=== PATIENT | female | born 2005 | race Caucasian/White ===

== ENCOUNTER 2023-10-14 21:34 | Emergency (ER) | payer MEDICAID, SELFPAY ==
[2023-10-14 21:34] VITALS: BP 114/85; PULSE 102; RESP 16; TEMP 36.1; O2SAT 95; BMI 29.9
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
[2023-10-14 22:45] LABS: Internal QC Validated? YES +Cl - CLEAR BKGD; Pregnancy, Urine Negative Negative
[2023-10-14 22:48] LABS: Absolute Lymphocyte Count 1.82 X10^3/uL (0.83-4.51); Absolute Neutrophil Count 7.1 X10^3/uL (2.0-7.7); Basophil# 0.03 X10^3/uL; Basophil% 0.3 % (0-1); Eosinophil# 0.08 X10^3/uL; Eosinophils% 0.8 % (0-5); Hematocrit 37.4 % (37-47); Hemoglobin 12.1 g/dL (12.0-15.0); Lymphocyte # 1.82 X10^3/ul (0.83-4.51); Mean Corp Hgb Conc 32.4 g/dL (32-36); Mean Corpuscular Volume 83.5 fL (81-99); Mean Platelet Vol. 10.1 fl (6.2-12.0); Monocyte# 0.54 X10^3/uL; Monocyte% 5.6 % (0-10); NRBC Flagged by Analyzer 0 % (0-5); Neutrophil # 7.08 X10^3/uL (2.7-7.7); Platelet Count 318 K/mm3 (150-450); RBC Distribution Width CV 14.2 % (11.6-14.6); RBC Distribution Width SD 42.7 fl (35.1-43.9); Red Blood Count 4.48 M/mm3 (4.2-5.4); White Blood Count 9.6 K/mm3 (4.4-11.0)
[2023-10-14 23:02] LABS: AST(SGOT) 20 U/L (15-37); Alanine Aminotransfer ALT/SGPT 27 U/L (13-56); Albumin, Serum 3.8 g/dL (3.2-5.0); Alkaline Phosphatase 110 U/L (45-117); Anion Gap 7 (5-15); BUN 19 mg/dL (7-18); BUN/Creat Ratio 23.7 RATIO (10-20); Calcium,Total 9.4 mg/dL (8.5-10.1); Chloride 109 mmol/L (98-107); EST Glomerular Filtration Rate 96 mL/min (>60); Est Glom Filt Rate - Afr Amer 117 mL/min (>60); Estimated Creatinine Clearance 92.79 ml/min; Globulin 3.8 g/dL (2.2-4.2); Glucose 102 mg/dL (74-106); Potassium 3.5 mmol/L (3.5-5.1); Protein, Total 7.6 g/dL (6.4-8.2); Sodium Level 139 mmol/L (136-145)
[2023-10-14 23:03] LABS: Amphetamine Urine VISTA NEGATIVE (<1000 ng/mL); Barbiturate Urine VISTA NEGATIVE (< 200 ng/mL); Benzodiazepine Urine VISTA NEGATIVE (< 200 ng/mL); Cocaine Urine VISTA NEGATIVE (< 300 ng/mL); Ecstacy Urine VISTA NEGATIVE (< 500 ng/mL); Methadone Urine VISTA NEGATIVE (< 300 ng/mL); PCP Urine VISTA NEGATIVE (< 25 ng/mL); THC Urine VISTA NEGATIVE (< 50 ng/mL); Vista UDS pH Range 5
--- NOTE | 2023-10-15 00:18 | NURSING ---
CALLED CRISIS AT 0018
[2023-10-15 01:35] VITALS: RESP 16
== END 2023-10-15 01:43 | disposition home or self-care (01) ==
PROVIDERS: Emergency Provider Emergency Medicine; Visit Provider Emergency Medicine
DX: R45.851 Suicidal ideations (principal); F41.9 Anxiety disorder, unspecified; F43.10 Post-traumatic stress disorder, unspecified; W22.8XXA Striking against or struck by other objects, initial encounter; F90.9 Attention-deficit hyperactivity disorder, unspecified type; F17.210 Nicotine dependence, cigarettes, uncomplicated; S80.812A Abrasion, left lower leg, initial encounter; S80.811A Abrasion, right lower leg, initial encounter
CPT/HCPCS: 84703; 80053; 80307; 81025; 82077; 85025; 87811; 99283

== ENCOUNTER 2024-04-28 17:40 | Outpatient (CLI) | payer MEDICAID, SELFPAY ==
[2024-04-28 17:46] VITALS: BP 107/69; PULSE 100; PULSE 96; O2SAT 98
[2024-04-28 17:51] VITALS: PULSE 109; O2SAT 97
[2024-04-28 17:56] VITALS: PULSE 95; O2SAT 97
[2024-04-28 18:01] VITALS: PULSE 96; O2SAT 98
[2024-04-28 18:06] VITALS: PULSE 101; O2SAT 98
--- NOTE | 2024-05-04 10:14 | OB.TRI.NOTE ---
HPI - General General Date of Admission: 04/28/24 Date of Service: 04/28/24 Chief Complaint: chest pain HPI Narrative DARIN STERLING, is a 19 F who presented to the ER with chest pain. She was sent to L&D given cramping for rule out labor before being evaluated for her chest pain. No vb, lof. PFSH PFSH Medical History (Updated 05/04/24 @ 10:[address] Bharti Shrestha, DO) PTSD (post-traumatic stress disorder) Anxiety Depression Chronic post-traumatic stress disorder (PTSD) Home Medications ?Medication ?Instructions ?Recorded ?Last Taken ?Type hydroxyzine pamoate 25 mg capsule 25 mg PO TID PRN anxiety #20 caps 10/15/23 Unknown Rx (Vistaril) Allergy/AdvReac Type Severity Reaction Status Date / Time No Known Allergies Allergy Verified 10/14/23 21:55 Surgical History Delivery by section History of ankle surgery Social History Smoking Status: Former smoker NST FHR Rate Baby A Baseline: 140 Variability:: Moderate Accelerations:: None Decelerations:: None NST Reactive:: Appropriate for gestational age Uterine Activity:: no contractions Assessment & Plan (1) 29 weeks gestation of : (2) Cramping affecting , antepartum: PLAN: No evidence of labor. Ok to go to ER for eval of chest pain. (3) Chest pain:
== END 2024-04-28 18:15 | disposition home or self-care (01) ==
LOC: WPOUT 17:42 → WP 17:43
PROVIDERS: Visit Provider Obstetrics & Gynecology
DX: O99.891 Other specified diseases and conditions complicating pregnancy (principal); R07.9 Chest pain, unspecified; Z87.891 Personal history of nicotine dependence; Z3A.29 29 weeks gestation of pregnancy; O26.893 Other specified pregnancy related conditions, third trimester; R25.2 Cramp and spasm; O99.343 Other mental disorders complicating pregnancy, third trimester; F43.12 Post-traumatic stress disorder, chronic
CPT/HCPCS: 59050; G0378; 99221

== ENCOUNTER 2024-04-28 18:20 | Emergency (ER) | payer MEDICAID, SELFPAY ==
[2024-04-28] VITALS (13 sets, daily range): BP systolic 96–110; BP diastolic 59–72; PULSE 87–102; RESP 15–24; TEMP 36.4–36.9; O2SAT 95–100; BMI 30.6
--- NOTE | 2024-04-28 19:21 | EKG12_ITS ---
Test Reason : DYSRHYTHMIA Blood Pressure : / mmHG Vent. Rate : 089 BPM Atrial Rate : 089 BPM P-R Int : 164 ms QRS Dur : 076 ms QT Int : 358 ms P-R-T Axes : 030 030 -04 degrees QTc Int : 435 ms Normal sinus rhythm Normal ECG Confirmed by Michael Delgado ([id number]), film and video editor VLADIMIR STARKS ([id number]) on 04/29/2024 12:57:01 PM Referred By: SEEMA Confirmed By:Michael Delgado
--- NOTE | 2024-04-28 19:30 | RAD_ITS ---
STUDY: X-RAY CHEST REASON FOR EXAM: Female, 19 years old. chest pain TECHNIQUE: AP portable COMPARISON: None. FINDINGS: The lungs are clear and expanded. There is no demonstrated pleural abnormality. Normal size heart. Normal mediastinum and arabella. Normal visualized pulmonary arteries. Normal visualized aortic arch and descending thoracic aorta. Normal visualized thoracic spine. Normal visualized ribs, clavicles, and shoulders. There is no demonstrated abnormality of the visualized soft tissue structures of the upper abdomen. RAD/Chest 1 View (Portable) IMPRESSION: Normal x-ray examination of the chest. Electronically Signed: Alexis Peters MD at 19:46 EDT ,
[2024-04-28 19:36] LABS: Absolute Lymphocyte Count 1.93 X10^3/uL (0.83-4.51); Absolute Neutrophil Count 8.1 X10^3/uL (2.0-7.7); Basophil# 0.04 X10^3/uL; Basophil% 0.4 % (0-1); Eosinophil# 0.16 X10^3/uL; Eosinophils% 1.5 % (0-5); Hematocrit 31.5 % (37-47); Hemoglobin 9.7 g/dL (12.0-15.0); Lymphocyte # 1.93 X10^3/ul (0.83-4.51); Lymphocyte % 17.6 % (19-41); Mean Corp Hgb Conc 30.8 g/dL (32-36); Mean Corpuscular Hgb 25.7 pg (27.0-32.0); Mean Corpuscular Volume 83.3 fL (81-99); Mean Platelet Vol. 10.6 fl (6.2-12.0); Monocyte# 0.62 X10^3/uL; Monocyte% 5.7 % (0-10); NRBC Flagged by Analyzer 0 % (0-5); Neutrophil # 8.11 X10^3/uL (2.7-7.7); Neutrophil % 73.8 % (47-70); Platelet Count 231 K/mm3 (150-450); RBC Distribution Width SD 45.2 fl (35.1-43.9); Red Blood Count 3.78 M/mm3 (4.2-5.4)
[2024-04-28 19:54] LABS: Anion Gap 8 (5-15); BUN 13 mg/dL (7-18); Calcium,Total 9.2 mg/dL (8.5-10.1); Chloride 107 mmol/L (98-107); Creatinine, Serum 0.68 mg/dL (0.55-1.02); EST Glomerular Filtration Rate 115 mL/min (>60); Est Glom Filt Rate - Afr Amer 140 mL/min (>60); Estimated Creatinine Clearance 119.98 ml/min; Glucose 74 mg/dL (74-106); Potassium 3.8 mmol/L (3.5-5.1); Sodium Level 137 mmol/L (136-145); Troponin-I HS (w/2H Reflex) < 3 pg/mL (3.0-54.0)
[2024-04-28 19:56] LABS: BNP,B-Type NATRIURETIC PEPTIDE 4.4 pg/mL (0-100)
[2024-04-28 20:05] LABS: D-Dimer Quantitative (DVT/PE) 1.97 FEU/ug/m (0.27-0.49)
--- NOTE | 2024-04-28 20:07 | CT_ITS ---
STUDY: CTA CHEST REASON FOR EXAM: Female, 19 years old. chest pain elevated d-dimer r/o PE RADIATION DOSAGE (If Supplied By Facility): CTDIvol = ( 11.34 ) mGy, DLP = ( 427.63 ) mGycm TECHNIQUE: The examination was performed with the intravenous administration of IV 100mL Isovue-370. Post-processing of the angiographic images was performed, with multiplanar reformation and 3D reconstruction. Individualized dose optimization techniques were used for this CT. COMPARISON: None. FINDINGS: Normal enhancement of the main pulmonary artery and right and left pulmonary arteries. Normal enhancement of the bilateral peripheral pulmonary arteries. There is no demonstrated pulmonary embolism. Normal thoracic aorta and visualized great vessels. There is no demonstrated aortic dissection. Normal heart and pericardium. Normal mediastinum. Normal hilar regions. Normal visualized trachea and bronchi. The lungs are well expanded. Mild generalized interstitial thickening and groundglass opacity possibly representing pulmonary interstitial edema although more likely due to respiratory motion artifact. Normal pleura. Normal chest wall structures. Normal osseous structures. Normal visualized upper abdomen. CT/CTA Chest W/WO Contrast IMPRESSION: No definitive evidence for acute cardiopulmonary pathology. Cannot definitively exclude mild pulmonary interstitial edema.. No evidence for pulmonary embolus Electronically Signed: Alexis Peters MD at 20:45 EDT ,
[2024-04-28] MEDS: 0.9% Normal Saline (1000mL) 1,000 ML 999 ML IV (20:11)
--- NOTE | 2024-04-28 20:36 | ED.VIS.CHEST ---
HPI History of Present Illness Chief Complaint: Chest Pain [facility] Medical History (Updated 04/28/24 @ 18:38 by Simran Johnson) PTSD (post-traumatic stress disorder) Anxiety Depression Chronic post-traumatic stress disorder (PTSD) Home Medications ?Medication ?Instructions ?Recorded ?Last Taken ?Type hydroxyzine pamoate 25 mg capsule 25 mg PO TID PRN anxiety #20 caps 10/15/23 Unknown Rx (Vistaril) Allergy/AdvReac Type Severity Reaction Status Date / Time No Known Allergies Allergy Verified 10/14/23 21:55 Surgical History Delivery by section History of ankle surgery Social History Smoking Status: Former smoker EXAM Physical Exam Const Vital Signs: 04/28/24 18:21 04/28/24 18:38 04/28/24 19:25 Temperature 97.6 F L Temperature Source Temporal Pulse Rate 92 Respiratory Rate 15 Respiratory Effort Normal Non-Labored Blood Pressure 110/68 Blood Pressure Mean 82 Pulse Ox 95 Oxygen Delivery Method Room Air Room Air 04/28/24 20:00 04/28/24 20:03 04/28/24 20:10 Temperature Temperature Source Pulse Rate 87 87 Respiratory Rate 21 H 17 Respiratory Effort Blood Pressure 98/72 98/72 Blood Pressure Mean 81 80 Pulse Ox 97 100 Oxygen Delivery Method Room Air Room Air 04/28/24 20:15 04/28/24 20:31 04/28/24 20:45 Temperature Temperature Source Pulse Rate 102 H 94 93 Respiratory Rate 19 H 16 24 H Respiratory Effort Blood Pressure Blood Pressure Mean Pulse Ox 100 100 99 Oxygen Delivery Method 04/28/24 21:00 04/28/24 21:15 04/28/24 21:30 Temperature Temperature Source Pulse Rate 95 90 Respiratory Rate 21 H 22 H Respiratory Effort Blood Pressure 103/71 Blood Pressure Mean 80 Pulse Ox 100 98 Oxygen Delivery Method 04/28/24 21:45 04/28/24 22:00 Temperature Temperature Source Pulse Rate 95 Respiratory Rate 18 Respiratory Effort Blood Pressure 96/59 L Blood Pressure Mean 71 Pulse Ox 97 Oxygen Delivery Method MDM MDM MDM Narrative Medical decision making narrative: HISTORY OF PRESENT ILLNESS: 19-year-old female presents with chest pain. Chest pain started approximate 10:30 AM. Notes it is midsternal it is sharp and is not exertional. She does note it is worse by cough. Is not worse by food. Denies syncope. The patient denies recent surgery in the last 4 weeks or immobilization in the last 3 days, denies previous diagnosis of DVT or PE, hemoptysis, unilateral leg swelling or malignancy with treatment the last 6 months or palliative. No estrogen use noted. Denies abdominal pain, passing any tissue, leakage of fluid, vaginal bleeding or contractions at this time. Patient denies sudden onset of pain, no tearing sensation, no migratory symptoms, no new numbness, weakness or loss of sensation. Patient denies family history or personal history of Connective tissue disorders (Marfan's Syndrome, Cal Danlos etc). REVIEW OF SYSTEMS: Pertinent positives: Chest pain, cough Pertinent negatives: Leg swelling, hemoptysis, PHYSICAL EXAM: Nursing triage notes reviewed, Vital signs reviewed Constitutional: please see mdm HENT: MMM Eyes: Pupils equal round and reactive to light, Extraocular muscles intact Neck: No stridor, no JVD, full neck ROM Lungs: Clear to auscultation, No wheezing or rales. No increased work of breathing, no conversational dyspnea, no accessory muscle use, no nasal flaring. No respiratory distress noted Heart: Regular rate and rhythm, No murmurs, No rubs and No gallops, 2+ distal pulses (radial, femoral, posterior tibial) in all extremities Abdomen: Soft, there is no tenderness, rigidity, rebound or guarding, no obvious peritoneal signs, no palpable pulsatile abdominal masses, no auscultated abdominal bruit : No CVAT Extremities: No edema Neuro: No focal neurological deficits, cranial nerves II through XII intact, 5/5 strength in all extremities. Intact sensation to light touch in all extremities, 2+ reflexes bilateral patella tendons. Normal gait. No ataxia. Skin: No rash or lesions noted MEDICAL DECISION MAKING: Chief Complaint: Chest pain External records reviewed: No recent advanced imaging of the chest. No recent echocardiograms noted in the chart Factors affecting care: Social determinants of health: History obtained from others: none Consults: none [facility] Narrative: Patient was initially hemodynamically stable, afebrile and nontoxic-appearing. Exam without stigmata of VTE. No focal cardiopulmonary abnormalities noted. I considered the following differential diagnosis: ACS, arrhythmia, anemia, electrolyte disturbance, pneumonia, asthma exacerbation, PE ALL IMAGES (IF OBTAINED) HAVE BEEN PERSONALLY REVIEWED AND INTERPRETED BY MYSELF. EKG with normal sinus rhythm, normal axis, normal intervals, no STEMI, no signs of right heart D-dimer was elevated this was concerning for VTE. Patient was consented for CT scan. Risk and benefits of radiation exposure to the unborn fetus were discussed. Patient agreed with benefits and agreed to go to the study. She is alert and orient x 3 and had capacity to make her medical symptoms and chose to go to a CT scan at this time. High-sensitivity troponin is negative, no evidence of myocardial ischemia x 2 BNP within normal limits suggestive of no heart failure CBC with no leukocytosis, noted anemia, no thrombocytopenia BMP without evidence of significant electrolyte abnormalities, no anion gap, no acute kidney injury. I have personally reviewed the patient's chest x-ray. Chest x-ray is unremarkable for pulmonary edema, pneumothorax, pneumonia or focal cardiopulmonary abnormality. CT scan of the chest shows no evidence of PE, while the radiologist commented on interstitial edema patient has no hypoxia, no rales, BNP negative, no arrhythmia. I do not think the patient is having acute CHF exacerbation The synthesis of the patient's history, physical exam, labs images suggest no acute life-limiting etiology specifically no evidence of ACS, heart failure, PE, significant anemia (noted worsening hemoglobin was likely secondary to changes in rather than acute blood loss anemia or GI bleed, do not suspect is causing her chest pain), electrolyte disturbances or arrhythmia. The patient and/or family, caregivers express understanding. The patient and/or family, caregivers agrees with the plan. Shared decision making: I will have a discussion with the patient and or visitors regarding risk/benefits of further testing or admission. They will be made aware of of the risk/benefits inherent in this decision they will be given the opportunity to voice understanding. Total critical care time today provided was at least 0 minutes. This excludes separately billable procedures. Critical care time (if documented) is secondary to the patient having high probability of clinically significant/life threatening deterioration in the patient's condition which required my urgent intervention. Impression: 1. Chest pain 2. Trimester 3. Anemia Dispo: Discharge home This note was generated with 2Check[employer] dictation software. It may contain incorrect words, spelling, and punctuation that were not noted in review of the chart prior to signing. Lab Data Labs: Laboratory Results - last 24 hr 07/08/24 07/08/24 19:10 21:02 WBC 11.0 RBC 3.78 L Hgb 9.7 L Hct 31.5 L MCV 83.3 MCH 25.7 L MCHC 30.8 L RDW Std Deviation 45.2 H RDW Coeff of Maddison 15.0 H Plt Count 231 MPV 10.6 Immature Gran % (Auto) 1.000 H Neut % (Auto) 73.8 H Lymph % (Auto) 17.6 L Miller % (Auto) 5.7 Eos % (Auto) 1.5 Baso % (Auto) 0.4 Absolute Neuts (auto) 8.1 H Absolute Lymphs (auto) 1.93 Nucleated RBC % 0 D-Dimer Quant (PE/DVT) 1.97 H* Sodium 137 Potassium 3.8 Chloride 107 Carbon Dioxide 22.0 Anion Gap 8 BUN 13 Creatinine 0.68 Estim Creat Clear Calc 119.98 Est GFR (MDRD) Af Amer 140 Est GFR (MDRD) Non-Af 115 BUN/Creatinine Ratio 19.0 Glucose 74 Calcium 9.2 Troponin I High Sens < 3 L < 3 L B-Natriuretic Peptide 4.4 Radiography Diagnostic Testing: Clinical Impression(s) from Imaging Studies Chest X-Ray 04/28/24 19:30 IMPRESSION: Normal x-ray examination of the chest. Electronically Signed: Alexis Peters MD at 19:46 EDT , Chest CTA 04/28/24 20:07 IMPRESSION: No definitive evidence for acute cardiopulmonary pathology. Cannot definitively exclude mild pulmonary interstitial edema.. No evidence for pulmonary embolus Electronically Signed: Alexis Peters MD at 20:45 EDT , Discharge Plan Triage Chief Complaint: Chest Pain ED Provider: Steve Ricardo Dx/Rx/DC Orders Prescriptions: No Action hydroxyzine pamoate [Vistaril] 25 mg capsule 25 mg PO TID PRN (Reason: anxiety) Qty: 20 0RF Primary Care Provider: Care Physician,No Primary Referrals: Care Physician,No Primary [Primary Care Provider] - Print Language: Bangladeshi
[2024-04-28 21:31] LABS: Reflex Troponin-HS? (from REC) Y
[2024-04-28 22:05] LABS: Troponin-I HS < 3 pg/mL (3.0-54.0)
== END 2024-04-28 22:42 | disposition home or self-care (01) ==
PROVIDERS: Emergency Provider Emergency Medicine; Visit Provider Emergency Medicine
DX: O99.891 Other specified diseases and conditions complicating pregnancy (principal); R07.9 Chest pain, unspecified; Z87.891 Personal history of nicotine dependence; O99.019 Anemia complicating pregnancy, unspecified trimester; Z3A.00 Weeks of gestation of pregnancy not specified
CPT/HCPCS: G0378; 59050; 71045; 71275; 80048; 83880; 84484; 85025; 85379; 93005; 96360; 99221; 99283; J7030; Q9967; A4216

== ENCOUNTER 2024-05-06 20:50 | Outpatient (CLI) | payer MEDICAID, SELFPAY ==
[2024-05-06] VITALS (18 sets, daily range): BP systolic 116; BP diastolic 59; PULSE 88–106; O2SAT 94–98; BMI 33.7
[2024-05-06 21:47] LABS: Color, Urine Yellow (Yellow); Glucose, Dipstick Normal (Normal); Ketone-Dipstick Negative (Negative); Leukocyte Esterase-Dipstick 100 /ul (Negative); Nitrite-Dipstick Positive (Negative); Occult Blood-Urine Negative /ul (Negative); Protein-Dipstick Negative (Negative); Urine Bilirubin Dipstick Negative (Negative); Urine Clarity Clear (Clear); Urine Urobilinogen Normal (Normal); Urine pH 6.5 (5.0 - 8.0)
--- NOTE | 2024-05-06 22:26 | OB.TRI.NOTE ---
HPI - General HPI Narrative DARIN STERLING, is a 19 F who presents Maternal Data Information BHAVANI Calculator Estimated Delivery Date Method Current WG Current Estimate 07/08/24 Manual 31w 0d PFSH PFSH Medical History (Updated 05/06/24 @ 22:[address] Juani Richter MD) PTSD (post-traumatic stress disorder) Anxiety Depression Chronic post-traumatic stress disorder (PTSD) Home Medications ?Medication ?Instructions ?Recorded ?Last Taken ?Type hydroxyzine pamoate 25 mg capsule 25 mg PO TID PRN anxiety #20 caps 10/15/23 Unknown Rx (Vistaril) ferrous sulfate 325 mg (65 mg 325 mg PO QODAY 05/06/24 Unknown History iron) tablet (FeroSul) vit no.95-ferrous 1 tab PO DAILY 05/06/24 Unknown History fumarate 28 mg-folic acid 800 mcg tablet () Allergy/AdvReac Type Severity Reaction Status Date / Time No Known Allergies Allergy Verified 05/06/24 21:31 Surgical History Delivery by section History of ankle surgery Social History Smoking Status: Former smoker NST FHR Rate Baby A Baseline: 135 Variability:: Moderate Accelerations:: 15 x 15 Decelerations:: None NST Reactive:: Yes Uterine Activity:: quiet Assessment & Plan (1) Urinary tract infection affecting care of mother in third trimester, antepartum: PLAN: macrobid x1 given
[2024-05-06] MEDS: Nitrofurantoin Macrocrystals 100 MG Capsule PO (22:52)
== END 2024-05-06 22:55 | disposition home or self-care (01) ==
LOC: WPOUT 20:57 → WP 20:59
PROVIDERS: Referring Provider Obstetrics & Gynecology; Visit Provider Obstetrics & Gynecology
DX: O23.43 Unspecified infection of urinary tract in pregnancy, third trimester (principal); Z3A.31 31 weeks gestation of pregnancy
CPT/HCPCS: 59025; 59050; 81002; 99221; G0378

== ENCOUNTER 2024-06-12 20:55 | Inpatient (IN) | payer MEDICAID, SELFPAY ==
[2024-06-12] VITALS (27 sets, daily range): BP systolic 107–116; BP diastolic 63–72; PULSE 88–118; RESP 16–20; TEMP 36.4–36.9; O2SAT 92–100; BMI 35.7
[2024-06-12] MEDS: Lactated Ringers 1,000 ML 999 ML IV ×2 (17:25→21:10)
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
[2024-06-12 18:05] LABS: Hemoglobin 9.1 g/dL (12.0-15.0); Mean Corp Hgb Conc 31.4 g/dL (32-36); Mean Corpuscular Hgb 25.3 pg (27.0-32.0); Mean Corpuscular Volume 80.8 fL (81-99); Mean Platelet Vol. 10.4 fl (6.2-12.0); Platelet Count 218 K/mm3 (150-450); RBC Distribution Width CV 16.7 % (11.6-14.6); RBC Distribution Width SD 49.1 fl (35.1-43.9); Red Blood Count 3.59 M/mm3 (4.2-5.4); White Blood Count 8.4 K/mm3 (4.4-11.0)
[2024-06-12 18:06] LABS: Scan Indicated on CBC? Y/N NO
[2024-06-12 18:59] LABS: Syphilis Antibodies Non-reactive
[2024-06-12] MEDS: Betamethasone/Betamethasone 30 MG/5 ML Vial 12 MG IM (19:40)
[2024-06-12] MEDS: Lactated Ringers 1,000 ML 200 ML IV (19:41)
[2024-06-12 19:57] LABS: Mucous, Urine 0 SEEN /hpf (<or=2+); Squamous Epithelial Cells - UA 0 SEEN /hpf (5-10)
[2024-06-12 20:05] LABS: Color, Urine Yellow (Yellow); Glucose, Dipstick Normal (Normal); Ketone-Dipstick Negative (Negative); Leukocyte Esterase-Dipstick 25 /ul (Negative); Nitrite-Dipstick Negative (Negative); Occult Blood-Urine 10 /ul (Negative); Protein-Dipstick Negative (Negative); Specific Gravity, Urine 1.015 (1.002-1.030); Urine Bilirubin Dipstick Negative (Negative); Urine Clarity Clear (Clear); Urine Urobilinogen Normal (Normal)
[2024-06-12 20:15] LABS: Bacteria 1+ /hpf (None Seen); Red Blood Cells-Urine 0-5 SEEN /hpf (0-5); Transitional Epithelial - Ur 0-5 SEEN /hpf (0-5); White Blood Cells 0-5 SEEN /hpf (0-5)
[2024-06-12] MEDS: Acetaminophen 500 MG Tablet 1000 MG PO (21:10)
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
--- NOTE | 2024-06-12 21:34 | EX.PCM.OBRPT ---
Maternal Data Information BHAVANI Calculator Estimated Delivery Date Method Current WG Current Estimate 07/08/24 Manual 36w 2d Details Operative Information Date of Procedure: 06/12/24 Pre-Operative Diagnosis: (1) labor (2) Prior section Post-Operative Diagnosis: Same Indications for : Repeat Elective Indications Narrative: The patient was taken to the operating room where spinal anesthesia was placed & found to be adequate. She was prepped and draped in the dorsal supine position with a leftward tilt. A Pfannenstiel skin incision was made approximately 2 cm above the symphysis pubis and carried through to the underlying fascia with the scalpel. The fascia was incised incised in the midline and extended laterally with the Aguilera scissors. The rectus muscles were in the midline and the peritoneum was entered carefully and bluntly. The peritoneal incision was stretched and the bladder blade was inserted. Vesicouterine peritoneum was tented up, incised & then bladder flap created gently. The uterine incision was made in a low transverse fashion with the scalpel and extended superiorly and inferiorly with blunt dissection. The 's head was grasped but unable to be elevated to the uterine incision. The patient was likely experiencing a panic attack triggered by pressure during the surgery. Anesthesia gave the patient IV medications to help. The had rotated from vertex (to oblique) but then rotated back once the patient was relaxed. The infants head was then grasped and elevated to the uterine incision. Vacuum placed and with one gentle pull pop off occurred. The vacuum was replaced and with a gentle pull the head delivered. Vacuum was released. The head was gently guided to allow delivery of the anterior and posterior shoulders. The body then delivered with fundal pressure in the standard fashion. The 3VC cord was clamped and cut. The infant was handed off to the waiting pediatric neuropsychologist. The placenta was delivered with fundal massage and gentle traction in the standard fashion. The uterus was exteriorized and cleared of clots and debris. The uterine incision was closed with #1 Vicryl suture in a running locked fashion. Monocryl suture was used in an imbricating fashion. The incision was examined and was found to be hemostatic. The uterus was returned to the abdominal cavity. After irrigating Be was placed over the uterine incision as some areas were denuded (but hemostatic). The rectus muscle was examined and any bleeding was Bovie cauterized. The fascia was closed with PDS suture in a running standard fashion. The subcutaneous tissue was examining and any bleeding was Bovie cauterized. The subcutaneous tissue was reapproximated with interrupted sutures. The skin was closed in a subcuticular fashion by the HEAD OF PARTNER DEVELOPMENT while I was present in the labor & delivery unit. The remainder of the procedure was performed by me with assistance. All sponge, lap, and needle counts were correct. The patient was taken to her room for recovery in a stable condition. Classification: TERRY Procedure Type: low transverse impregnating tank operator #1: Chely Hernandez Type of Anesthesia: Spinal Antibiotic Given: Ancef 2 grams IV x1 Drain: Robbins to straight drain Estimated Blood Loss: 700ml Fluids Replaced: 1200ml Procedure Start Time: 22:09 Procedure Stop Time: 22:55 Findings Description of Procedure: Normal maternal uterus and adnexa Presentation: Positive for Vertex Amniotic Membrane Rupture Type: Artificial Amniotic Fluid Description: Clear Placental Delivery Description: Expressed Placenta Disposition: [facility] Specimen(s) Sent to Pathology: Placenta Cord Vessel Description: 3 Vessels Cord Entanglement: None Infant A Gender: Female (1 minute): 2 (5 minute): 6 (9 at 10 minutes) Delayed Cord Clamping: No
[2024-06-12] MEDS: Sodium Citrate/Citric Acid 30 ML UDC PO (21:43)
[2024-06-12] MEDS: Cefazolin 2 GM in 0.9% Normal Saline (100mL Bag) 100 ML IV (21:48)
[2024-06-12] MEDS: Ketorolac 30 MG/ML Syringe IV (23:16)
[2024-06-12] MEDS: Oxytocin 15 Units/NS 250ml 15 UNITS/250 ML IV.SOLN 83 UNITS IV (23:16)
[2024-06-12] MEDS: 0.9% Saline Lock 10 ML Syringe IV (23:16)
[2024-06-13] VITALS (25 sets, daily range): BP systolic 102–116; BP diastolic 59–80; PULSE 67–100; RESP 14–18; TEMP 35.9–36.6; O2SAT 94–99
[2024-06-13] MEDS: Acetaminophen 500 MG Tablet 1000 MG PO ×4 (02:38→20:47)
[2024-06-13] MEDS: Lactated Ringers 1,000 ML 100 ML IV (02:38)
[2024-06-13] MEDS: Ketorolac 30 MG/ML Syringe IV ×3 (05:55→17:08)
[2024-06-13] MEDS: 0.9% Saline Lock 10 ML Syringe IV ×3 (05:57→11:45)
[2024-06-13 06:09] LABS: Hematocrit 28.9 % (37-47); Hemoglobin 8.9 g/dL (12.0-15.0); Mean Corp Hgb Conc 30.8 g/dL (32-36); Mean Corpuscular Volume 81.2 fL (81-99); Platelet Count 220 K/mm3 (150-450); RBC Distribution Width CV 16.6 % (11.6-14.6); Red Blood Count 3.56 M/mm3 (4.2-5.4); White Blood Count 12.6 K/mm3 (4.4-11.0)
--- NOTE | 2024-06-13 07:13 | PCM.PN.CNM ---
Subjective Subjective Patient seen at bedside. Denies headache, vision changes, SOB or CP. Ambulating to [facility] to see baby. Pain controlled at this time. Objective Data Objective Data Vital Signs: Vital Signs Temp Pulse Resp BP Pulse Ox O2 Del Method 97.0 F L 79 16 104/59 L 94 Room Air 06/13/24 05:42 06/13/24 06:36 06/13/24 06:36 06/13/24 05:42 06/13/24 06:36 06/13/24 06:36 Oxygen Delivery Method Room Air Weight: 183 lb 3.266 oz Body Mass Index (BMI) 35.7 Intake & Output: Intake and Output for Last 24 Hours 06/11/24 06/12/24 06/13/24 23:59 23:59 23:59 Intake Total 2533.33 / 2533.33 350 / 350 Output Total 1150 / 1150 400 / 400 Balance 1383.33 / 1383.33 -50 / -50 Lab / Micro Data Attestation: I reviewed the patient's lab results. 06/13/24 05:55 Labs: Laboratory Results - last 24 hr 06/12/24 17:25: WBC 8.4, RBC 3.59 L, Hgb 9.1 L, Hct 29.0 L, MCV 80.8 L, MCH 25.3 L, MCHC 31.4 L, RDW Std Deviation 49.1 H, RDW Coeff of Maddison 16.7 H, Plt Count 218, MPV 10.4, Syphilis Total Ab Non-reactive, Blood Type O POSITIVE, Antibody Screen NEGATIVE 06/12/24 19:45: Urine Color Yellow, Urine Clarity Clear, Urine pH 6.0, Ur Specific [place] 1.015, Urine Protein Negative, Urine Glucose (UA) Normal, Urine Ketones Negative, Urine Occult Blood 10 H, Urine Nitrite Negative, Urine Bilirubin Negative, Urine Urobilinogen Normal, Ur Leukocyte Esterase 25 H, Urine RBC 0-5 SEEN, Urine WBC 0-5 SEEN, Ur Squamous Epith Cells 0 SEEN, Ur Transition Epith Cell 0-5 SEEN, Urine Bacteria 1+, Urine Mucus 0 SEEN 06/13/24 05:55: WBC 12.6 H, RBC 3.56 L, Hgb 8.9 L, Hct 28.9 L, MCV 81.2, MCH 25.0 L, MCHC 30.8 L, RDW Std Deviation 49.0 H, RDW Coeff of Maddison 16.6 H, Plt Count 220, MPV 10.0 ROS Eyes Eyes: Denies blurry vision, spots in vision or tunnel vision ENT HEENT: Denies dizziness or headache(s) Cardiovascular Cardiovascular: Reports systems reviewed and no addt'l complaints, except as documented, dizziness and dyspnea Respiratory/Chest Respiratory/Chest: Reports systems reviewed and no addt'l complaints, except as documented Gastrointestinal Gastrointestinal: Reports systems reviewed and no addt'l complaints, except as documented Genitourinary Genitourinary: Reports systems reviewed and no addt'l complaints, except as documented Neurologic Neurologic: Denies abnormal speech, dizziness, headache(s), syncope or vertigo Psychiatric Psychiatric: Reports systems reviewed and no addt'l complaints, except as documented Physical Exam Const alert and no apparent distress General Appearance: cooperative Orientation / Consciousness: awake, oriented to person and oriented to place Exam Limitations: no limitations HEENT normocephalic Eyes General Eye: normal appearance of both eyes Neck full ROM Chest Chest: symmetrical chest wall rise Resp normal respiratory effort, normal air movement and clear to auscultation bilaterally Auscultation: clear to auscultation bilaterally Cardio regular rate and regular rhythm GI normal to inspection, nondistended, normoactive bowel sounds Uterus Palpation: uterus fundus firm Extremity full ROM and no calf tenderness Skin no rashes or lesions noted Neuro oriented x3 Psych Appearance: appropriate Attitude: calm Mood & Affect: flat affect Memory / Cognition: cognition impaired Assessment & Plan (1) Status post repeat low transverse section: (2) Postoperative anemia due to acute blood loss: (3) PTSD (post-traumatic stress disorder): (4) Anxiety: (5) Depression: (6) Chronic post-traumatic stress disorder (PTSD): PLAN: Plan POD 1 Repeat C/S Pain control Increase ambulation HGB 8.9- Give IV Venofer x 1 dose today Repeat CBC AM Patient having family bring antidepressant and antianxiety medication doses/bottles - patient desires to restart medications Formula feeding
[2024-06-13] MEDS: Iron Sucrose Complex 200 MG in 0.9% Normal Saline (100mL Bag) 100 ML 220 MG IV (08:19)
[2024-06-13] MEDS: Enoxaparin 40 MG/0.4 ML Syringe SC (10:37)
[2024-06-13] MEDS: Senna/Docusate Sodium 1 Tablet PO (10:37)
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
--- NOTE | 2024-06-13 12:01 | NURSING ---
Patient educated on Rubella non-immune status and MMR vaccine. Patient declines vaccination at this time.
[2024-06-13] MEDS: oxyCODONE 5 MG Tablet PO (20:47)
[2024-06-13] MEDS: Ibuprofen 600 MG Tablet PO (23:02)
[2024-06-14 03:08] VITALS: BP 97/63; PULSE 73; RESP 16; TEMP 36.3; O2SAT 96
[2024-06-14] MEDS: Acetaminophen 500 MG Tablet 1000 MG PO ×4 (03:10→20:28)
[2024-06-14] MEDS: Ibuprofen 600 MG Tablet PO ×4 (05:05→22:20)
[2024-06-14 05:24] LABS: Absolute Lymphocyte Count 1.96 X10^3/uL (0.83-4.51); Absolute Neutrophil Count 9.5 X10^3/uL (2.0-7.7); Basophil# 0.02 X10^3/uL; Basophil% 0.2 % (0-1); Eosinophil# 0.01 X10^3/uL; Eosinophils% 0.1 % (0-5); Hematocrit 27.5 % (37-47); Hemoglobin 8.4 g/dL (12.0-15.0); Lymphocyte # 1.96 X10^3/ul (0.83-4.51); Lymphocyte % 15.4 % (19-41); Mean Corp Hgb Conc 30.5 g/dL (32-36); Mean Corpuscular Hgb 25.1 pg (27.0-32.0); Mean Corpuscular Volume 82.1 fL (81-99); Mean Platelet Vol. 9.8 fl (6.2-12.0); Monocyte# 1.01 X10^3/uL; NRBC Flagged by Analyzer 0 % (0-5); Neutrophil % 74.8 % (47-70); Platelet Count 218 K/mm3 (150-450); RBC Distribution Width CV 16.9 % (11.6-14.6); Red Blood Count 3.35 M/mm3 (4.2-5.4); White Blood Count 12.7 K/mm3 (4.4-11.0)
[2024-06-14 07:53] VITALS: BP 104/72; PULSE 69; RESP 16; TEMP 36.3; O2SAT 97
[2024-06-14] MEDS: oxyCODONE 5 MG Tablet PO (08:10)
--- NOTE | 2024-06-14 09:05 | PN.OBGYN_ITS ---
Subjective Subjective Ambulating and voiding without difficulty. Pain ok. Cough that started just before admission. No fever no chills. No SOB. Has asthma. Has not used her inhaler recently. Does not feeling she needs it. Baby in [facility]. May get transferred to [place] Objective Data Objective Data Vital Signs: Vital Signs Temp Pulse Resp BP Pulse Ox O2 Del Method 97.3 F L 69 16 104/72 97 Room Air 06/14/24 07:53 06/14/24 07:53 06/14/24 07:53 06/14/24 07:53 06/14/24 07:53 06/14/24 08:12 Oxygen Delivery Method Room Air Weight: 83.1 kg Body Mass Index (BMI) 35.7 Intake & Output: Intake and Output for Last 24 Hours 06/12/24 06/13/24 06/14/24 23:59 23:59 23:59 Intake Total 2533.33 / 2533.33 1013.33 / 1013.33 Output Total 1150 / 1150 1100 / 1100 Balance 1383.33 / 1383.33 -86.67 / -86.67 Lab / Micro Data 06/14/24 05:07 Labs: Laboratory Results - last 24 hr 06/14/24 05:07: WBC 12.7 H, RBC 3.35 L, Hgb 8.4 L, Hct 27.5 L, MCV 82.1, MCH 25.1 L, MCHC 30.5 L, RDW Std Deviation 50.0 H, RDW Coeff of Maddison 16.9 H, Plt Count 218, MPV 9.8, Immature Gran % (Auto) 1.500 H, Neut % (Auto) 74.8 H, Lymph % (Auto) 15.4 L, [place] % (Auto) 8.0, Eos % (Auto) 0.1, Baso % (Auto) 0.2, A bsolute Neuts (auto) 9.5 H, Absolute Lymphs (auto) 1.96, Nucleated RBC % 0 ROS Constitutional Constitutional: Denies chills, fatigue, fever(s), headache(s) or malaise Respiratory/Chest Respiratory/Chest: Reports chest congestion and cough; Denies dyspnea or dyspnea on exertion Gastrointestinal Gastrointestinal: Denies diarrhea, nausea or vomiting Neurologic Neurologic: Denies weakness Physical Exam Const alert, oriented x3 and no apparent distress General Appearance: cooperative and comfortable HEENT normocephalic Eyes PERRL Resp normal respiratory effort Effort and Inspection: able to speak in complete sentences Auscultation: rhonchi; Negative for wheezes Cardio regular rate and regular rhythm Extremity normal to inspection Skin no rashes or lesions noted Neuro oriented x3 and CN's II-XII intact bilaterally Psych Thought Content: normal thought content Assessment & Plan (1) Status post repeat low transverse section: (2) Depression: QUALIFIERS: Depression Type: unspecified Qualified Code(s): F32.A - Depression, unspecified PLAN: Restarting paxil and buspar (3) Anxiety: PLAN: Restarting paxil and buspar (4) Chronic post-traumatic stress disorder (PTSD): PLAN: Plan Continue care
[2024-06-14] MEDS: Senna/Docusate Sodium 1 Tablet PO (09:10)
[2024-06-14] MEDS: Enoxaparin 40 MG/0.4 ML Syringe SC (10:25)
[2024-06-14] MEDS: Paroxetine 20 MG Tablet PO (10:25)
[2024-06-14 13:25] VITALS: BP 106/66; PULSE 79; RESP 16; TEMP 36.3; O2SAT 98
[2024-06-14 20:29] VITALS: BP 108/60; PULSE 67; RESP 16; TEMP 36.2; O2SAT 100
[2024-06-15] MEDS: Acetaminophen 500 MG Tablet 1000 MG PO ×2 (03:02→09:03)
[2024-06-15 03:03] VITALS: BP 103/67; PULSE 72; RESP 16; TEMP 36.2; O2SAT 96
[2024-06-15] MEDS: Ibuprofen 600 MG Tablet PO ×2 (04:23→10:20)
--- NOTE | 2024-06-15 08:03 | PCM.PN.OB ---
Subjective Subjective Cough better today. Itching and raised rash around bandage. Pain controlled. Ambulating and voiding without difficulty Objective Data Objective Data Vital Signs: Vital Signs Temp Pulse Resp BP Pulse Ox O2 Del Method 97.1 F L 72 16 103/67 96 Room Air 06/15/24 03:03 06/15/24 03:03 06/15/24 03:03 06/15/24 03:03 06/15/24 03:03 06/15/24 03:03 Oxygen Delivery Method Room Air Weight: 83.1 kg Body Mass Index (BMI) 35.7 Intake & Output: Intake and Output for Last 24 Hours 06/13/24 06/14/24 06/15/24 23:59 23:59 23:59 Intake Total 1013.33 / 1013.33 Output Total 1100 / 1100 Balance -86.67 / -86.67 Lab / Micro Data 06/14/24 05:07 ROS Constitutional Constitutional: Denies chills, fatigue, fever(s), headache(s) or malaise Respiratory/Chest Respiratory/Chest: Reports chest congestion and cough; Denies dyspnea or dyspnea on exertion Gastrointestinal Gastrointestinal: Denies diarrhea, nausea or vomiting Integumentary Integumentary: Reports pruritus and rash Neurologic Neurologic: Denies weakness Physical Exam Const alert General Appearance: cooperative GI GI Narrative: soft, moderate distention, fundus firm, appropriately tender. Abdominal bandage clean dry and intact Skin Rashes: rashes noted Raised thick welts around bandage and under adhesive of bandage maculopapular erythematous Yes soft dry raised nontender Assessment & Plan (1) Status post repeat low transverse section: (2) Chronic post-traumatic stress disorder (PTSD): (3) Depression: QUALIFIERS: Depression Type: unspecified Qualified Code(s): F32.A - Depression, unspecified PLAN: Paxil (4) Anxiety: PLAN: buspar (5) Rash at application site: PLAN: hydrocortisone PLAN: Plan Discharge to hotel status
--- NOTE | 2024-06-15 08:03 | PCM.DC.SUM ---
Providers Date of Admission: 06/12/24 Date of Discharge: 06/15/24 Primary Care Physician: No Primary Care Phys Reason For Visit: Diagnosis Discharge Diagnosis (1) Status post repeat low transverse section: Status: Acute Code(s): Z98.891 - History of uterine scar from previous surgery (2) Depression: Status: Acute Code(s): F32.A - Depression, unspecified Qualifiers: Depression Type: unspecified Qualified Code(s): F32.A - Depression, unspecified Plan: Restarting paxil and buspar (3) Anxiety: Status: Acute Code(s): F41.9 - Anxiety disorder, unspecified Plan: Restarting paxil and buspar (4) Chronic post-traumatic stress disorder (PTSD): Status: Acute Code(s): F43.12 - Post-traumatic stress disorder, chronic Plan Continue care Medications at Discharge Home Medications ferrous sulfate 325 mg (65 mg iron) tablet (FeroSul) 325 mg PO QODAY 05/06/24 vit no.95-ferrous fumarate 28 mg-folic acid 800 mcg tablet () 1 tab PO DAILY 05/06/24 hydroxyzine pamoate 25 mg capsule (Vistaril) 50 mg PO TID PRN anxiety 06/12/24 acetaminophen 500 mg tablet 1,000 mg (2 x 500 mg) PO Q6H PRN pain #30 tabs 06/15/24 buspirone 5 mg tablet 5 mg PO BID PRN Anxiety/Restlessness/Sleep #60 tabs 06/15/24 hydrocortisone 2.5 % topical cream 1 applic topical TID PRN PRN Discomfort #30 grams 06/15/24 ibuprofen 600 mg tablet 600 mg PO Q6H #60 tabs 06/15/24 oxycodone 5 mg tablet 5 mg PO Q6H PRN PRN Pain Score 4-10 4 days #14 tabs 06/15/24 paroxetine HCl 20 mg tablet 20 mg PO DAILY #30 tabs 06/15/24 Hospital Course Operations section Procedures None Summary of Care Provided Minutes Spent on Discharge: 21 Hospital Course: Presented in active labor with previous requesting repeat . Baby in SCN with RDS. uncomplicated. Discharged to [facility] status Physical Exam Const alert General Appearance: cooperative GI GI Narrative: soft, moderate distention, fundus firm, appropriately tender. Abdominal bandage clean dry and intact Weight / BMI Weight Weight: 83.1 kg Body Mass Index (BMI) 35.7 ABG / Lab / Microbiology Data 06/14/24 05:07 D/C Instructions Discharge Diet: No restrictions May resume sexual activity in: 4-6 weeks Lifting Restrictions: 20 pounds Additional Activity Instructions: Nothing in the vagina for 4-6 weeks. You may return to work/school in 6 weeks. Call your doctor if your incision/area has: Continuous Slow Oozing, Sudden Increased Bleeding, Increased Pain/ Swelling, Increased Redness and Foul Smelling Discharge Call your doctor if you observe: Fever of 101 or Higher and Using more than 1 pad per hour (for 2 hours) Suture Line Care: Avoid Pulling/Pushing and Avoid Pinching/Bending Cleanse incision/area with: Keep Dressing Clean & Dry Please Follow Up With: Antonietta Patten MD When: Call to make an appointment for an incision check in 1-2 [phone]. You will need a post check in 6 weeks. Meaningful Use Info Meaningful Use Meaningful Use Diagnoses (Choose all that apply): None applicable Ischemic Stroke Statin Dosing Therapy Reference: STATIN DOSE THERAPY REFERENCE: * Patients > 75 years receive moderate or high dose statin therapy. * Patients 75 years or YOUNGER should receive HIGH intensity statin dose unless contraindicated. You will be required to document reason for non-treatment if statin daily dose does not meet guidelines. HIGH DOSE STATIN THERAPY DAILY Atorvastatin > than or = to 40 mg Rosuvastatin > than or = to 20 mg Amlodipine + Atorvastatin > than or = to 2.5/40 mg Ezetimibe + Simvastatin 10/80 mg Simvastatin 80mg Discharge Plan Admission Admit Date/Time: 06/12/24 20:55 Primary Reason for Your Visit: Labor Attending Provider: Taylor Dave Primary Care Provider: Care Physician,Patsy Primary Discharge Orders/Prescriptions Prescriptions: New buspirone 5 mg Tablet 5 mg PO BID PRN (Reason: Anxiety/Restlessness/Sleep) Qty: 60 0RF acetaminophen 500 mg Tablet 1,000 mg PO Q6H PRN (Reason: pain) Qty: 30 0RF hydrocortisone 2.5 % Cream 1 applic topical TID PRN PRN (Reason: Discomfort) Qty: 30 0RF Protocol: *Topical Application Instructions APPLICATION INSTRUCTIONS: Give for discomfort with pad changes ibuprofen 600 mg Tablet 600 mg PO Q6H Qty: 60 0RF oxycodone 5 mg Tablet 5 mg PO Q6H PRN PRN (Reason: Pain Score 4-10) 4 Days Qty: 14 0RF paroxetine HCl 20 mg Tablet 20 mg PO DAILY Qty: 30 1RF Continued PNV cmb#95-ferrous fumarate-FA [] 28 mg iron- 800 mcg tablet 1 tab PO DAILY ferrous sulfate [FeroSul] 325 mg (65 mg iron) tablet 325 mg PO QODAY hydroxyzine pamoate [Vistaril] 25 mg capsule 50 mg PO TID PRN (Reason: anxiety) Referrals / Follow Up: Care Physician,No Primary [Primary Care Provider] - Disposition Disposition (needs filled in before D/C Order can be placed): Home, Self Care
[2024-06-15] MEDS: Hydrocortisone 2.5% Crm 1 APPLIC TOPICAL (08:28)
[2024-06-15 08:56] VITALS: BP 113/74; PULSE 87; RESP 16; TEMP 36.3; O2SAT 96
[2024-06-15] MEDS: Enoxaparin 40 MG/0.4 ML Syringe SC (10:19)
[2024-06-15] MEDS: Etonogestrel 68 MG IMPLANT SC (10:20)
[2024-06-15] MEDS: Paroxetine 20 MG Tablet PO (10:20)
--- NOTE | 2024-06-15 10:32 | PCM.OP.PRO ---
Procedure Report Date of Procedure: 06/15/24 PRE-OP DIAGNOSIS: desired long-term, reversible contraception POST-OP DIAGNOSIS: Same PROCEDURE: Nexplanon ? placement Physician: Jimy PROCEDURE: Insertion of Nexplanon Site: Left Arm Serial # [id number] Sterile Preparation: Chloraprep Expiration Date [_] Insertion site was selected 8 ? 10 cm from medial epicondyle. Procedure area was prepped and draped in a sterile fashion. 2 mL of 1% lidocaine without epinephrine used for subcutaneous anesthesia. Anesthesia confirmed. Nexplanon trocar was inserted subcutaneously and then Nexplanon capsule delivered subcutaneously. Trocar was removed from the insertion site. Nexplanon capsule was palpated by provider and patient to assure satisfactory placement. Estimated blood loss of: none Dressings applied: Gauze/Tape Followup: The patient tolerated the procedure well without complications. Standard post-procedure care is explained and return precautions are given. Assessment & Plan Assessment/Plan (1) Insertion of implantable subdermal contraceptive: PLAN: Nexplanon placed . 06/15/24 left arm
[2024-06-15] MEDS: Lidocaine 1% (20 ml mdv) 20 ML Vial INFILT (10:33)
[2024-06-15 13:33] VITALS: BP 106/65; PULSE 80; RESP 16; TEMP 36.9; O2SAT 99
[2024-06-15] MEDS: MEASLES,MUMPS,RUBELLA VACC/PF 0.5 ML SC (13:47)
== END 2024-06-15 14:45 | disposition home or self-care (01) | DRG 540 ==
LOC: WPOUT 21:03 → WP 21:03
PROVIDERS: Admitting Provider Obstetrics & Gynecology; Referring Provider Advanced Practice Midwife; Visit Provider Advanced Practice Midwife
DX: O60.14X0 Preterm labor third trimester with preterm delivery third trimester, not applicable or unspecified (principal); D62 Acute posthemorrhagic anemia; F32.A Depression, unspecified; F41.9 Anxiety disorder, unspecified; O99.344 Other mental disorders complicating childbirth; O99.52 Diseases of the respiratory system complicating childbirth; Z37.0 Single live birth; O34.211 Maternal care for low transverse scar from previous cesarean delivery; O90.81 Anemia of the puerperium; F43.12 Post-traumatic stress disorder, chronic; Z87.891 Personal history of nicotine dependence; Z3A.36 36 weeks gestation of pregnancy; O99.893 Other specified diseases and conditions complicating puerperium; R21 Rash and other nonspecific skin eruption
CPT/HCPCS: 59025; 59050; 81001; 85025; 85027; 86780; 86850; 86900; 86901; 99221; J1756; J7120; A4216; G0378; J0702

== ENCOUNTER 2024-09-28 00:31 | Emergency (ER) | payer MEDICAID, SELFPAY ==
[2024-09-28 00:33] VITALS: BP 136/82; PULSE 118; RESP 18; TEMP 36.6; O2SAT 95; BMI 34.9
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
--- NOTE | 2024-09-28 00:55 | CT_ITS ---
EXAM: CT HEAD WITHOUT INTRAVENOUS CONTRAST CLINICAL INDICATION: seizure TECHNIQUE: Multiple axial images were obtained of the head without intravenous contrast. This CT exam was performed using one or more of the following dose reduction techniques: automated exposure control, adjustment of the mA and/or kV according to patient size, and/or use of iterative reconstruction technique. RADIATION DOSE: CTDIvol = 44.99 mGy, DLP = 829.85 mGy-cm COMPARISON: No relevant prior studies available. FINDINGS: BRAIN AND EXTRA-AXIAL SPACES: Unremarkable. No intra- or extra-axial hemorrhage. No evidence of acute infarct. No intracranial mass or mass effect. There is preservation of the sexton/white matter interface. Posterior fossa structures are unremarkable. Ventricles are appropriate for age. No hydrocephalus. Basal cisterns are patent. BONES/JOINTS: Unremarkable. No discrete lytic or blastic abnormalities. SINUSES: Unremarkable as visualized. Clear. MASTOID AIR CELLS: Unremarkable. Clear. ORBITS: Visualized globes, extraocular muscles, optic nerves and retrobulbar fat appear unremarkable. CT/Brain/Head without Contrast IMPRESSION: Negative head/brain CT without intravenous contrast. Electronically Signed: Grant Barrientos MD at 1:51 EST ,
[2024-09-28 01:15] LABS: Absolute Lymphocyte Count 2.74 X10^3/uL (0.83-4.51); Absolute Neutrophil Count 3.7 X10^3/uL (2.0-7.7); Basophil# 0.05 X10^3/uL; Basophil% 0.7 % (0-1); Eosinophil# 0.24 X10^3/uL; Eosinophils% 3.2 % (0-5); Hematocrit 35.1 % (37-47); Lymphocyte # 2.74 X10^3/ul (0.83-4.51); Lymphocyte % 37.1 % (19-41); Mean Corp Hgb Conc 31.3 g/dL (32-36); Mean Corpuscular Hgb 27.2 pg (27.0-32.0); Mean Corpuscular Volume 86.7 fL (81-99); Mean Platelet Vol. 10.2 fl (6.2-12.0); Monocyte# 0.61 X10^3/uL; Monocyte% 8.3 % (0-10); NRBC Flagged by Analyzer 0 % (0-5); Neutrophil # 3.73 X10^3/uL (2.7-7.7); Neutrophil % 50.4 % (47-70); Platelet Count 273 K/mm3 (150-450); RBC Distribution Width CV 14.5 % (11.6-14.6); RBC Distribution Width SD 45.5 fl (35.1-43.9); Red Blood Count 4.05 M/mm3 (4.2-5.4); White Blood Count 7.4 K/mm3 (4.4-11.0)
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
[2024-09-28 01:35] LABS: Anion Gap 6 (5-15); BUN 16 mg/dL (7-18); BUN/Creat Ratio 16.8 RATIO (10-20); Calcium,Total 9.1 mg/dL (8.5-10.1); Chloride 111 mmol/L (98-107); Creatinine, Serum 0.95 mg/dL (0.55-1.02); EST Glomerular Filtration Rate 78 mL/min (>60); Est Glom Filt Rate - Afr Amer 95 mL/min (>60); Estimated Creatinine Clearance 91.98 ml/min; Glucose 122 mg/dL (74-106); Magnesium 2.1 mg/dL (1.6-2.6); Potassium 3.6 mmol/L (3.5-5.1); Sodium Level 141 mmol/L (136-145)
[2024-09-28 01:41] LABS: Amphetamine Urine VISTA NEGATIVE (<1000 ng/mL); Barbiturate Urine VISTA NEGATIVE (< 200 ng/mL); Benzodiazepine Urine VISTA NEGATIVE (< 200 ng/mL); Cocaine Urine VISTA NEGATIVE (< 300 ng/mL); Ecstacy Urine VISTA NEGATIVE (< 500 ng/mL); Methadone Urine VISTA NEGATIVE (< 300 ng/mL); PCP Urine VISTA NEGATIVE (< 25 ng/mL); THC Urine VISTA POSITIVE (< 50 ng/mL); Vista UDS pH Range 6
[2024-09-28 01:46] LABS: Internal QC Validated? YES +Cl - CLEAR BKGD; Pregnancy, Urine Negative Negative
[2024-09-28 02:24] VITALS: BP 130/89; PULSE 75; RESP 18; TEMP 36.5; O2SAT 97
== END 2024-09-28 02:25 | disposition home or self-care (01) ==
PROVIDERS: Emergency Provider Emergency Medicine; Visit Provider Emergency Medicine
DX: R56.9 Unspecified convulsions (principal); F41.9 Anxiety disorder, unspecified; F32.A Depression, unspecified; S00.81XA Abrasion of other part of head, initial encounter; F43.10 Post-traumatic stress disorder, unspecified; S00.512A Abrasion of oral cavity, initial encounter; J45.909 Unspecified asthma, uncomplicated; F17.290 Nicotine dependence, other tobacco product, uncomplicated; R51.9 Headache, unspecified; X58.XXXA Exposure to other specified factors, initial encounter
CPT/HCPCS: 70450; 80048; 80307; 81025; 83735; 85025; 99285; A4216

== ENCOUNTER 2024-11-23 10:53 | Emergency (ER) | payer MEDICAID, SELFPAY ==
[2024-11-23 10:54] VITALS: BP 109/72; PULSE 117; RESP 18; TEMP 37.3; O2SAT 98; BMI 34.9
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
== END 2024-11-23 12:45 | disposition home or self-care (01) ==
PROVIDERS: Emergency Provider Emergency Medicine; Visit Provider Emergency Medicine
DX: J10.1 Influenza due to other identified influenza virus with other respiratory manifestations (principal); R05.9 Cough, unspecified; J45.909 Unspecified asthma, uncomplicated; F17.290 Nicotine dependence, other tobacco product, uncomplicated
CPT/HCPCS: 87631; 99282

== ENCOUNTER → 2024-11-25 | Outpatient (CLI) | payer MEDICAID, SELFPAY | END | disposition home or self-care (01) | LOC: PSN 07:43 | PROVIDERS: Referring Provider Psychiatry & Neurology Neurology; Visit Provider Psychiatry & Neurology Neurology | DX: G40.909 Epilepsy, unspecified, not intractable, without status epilepticus (principal) | CPT/HCPCS: 95819 ==

== ENCOUNTER → 2024-12-15 | Outpatient (CLI) | payer MEDICAID, SELFPAY ==
--- NOTE | 2024-12-15 07:28 | MRI_ITS ---
PROCEDURE: MRI of the brain without and with intravenous contrast. REASON FOR EXAM: New grand mal seizure TECHNIQUE: Multiplanar, multisequence MRI images of the brain were obtained without and with intravenous contrast. 17 cc Clariscan IV contrast was administered. COMPARISON: Noncontrast CT brain 09/28/2024 FINDINGS: Bones of the calvarium are intact. The included upper spinal cord is unremarkable. Orbits, sella, and parasellar structures show no specific abnormality. Paranasal sinuses and mastoid air cells are clear. Extracranial soft tissues show no specific abnormality. In the upper cervical soft tissues on image 16 of the coronal postcontrast images, there are borderline enlarged 1 cm short axis upper cervical lymph nodes. These may be reactive. The major basilar intracranial flow voids are present. No extra-axial fluid collection or midline shift. Ventricles normal in caliber and configuration. Mckeon-white matter differentiation is maintained. The basilar cisterns are clear. There are no areas of restricted diffusion. On postcontrast images, no areas of abnormal brain parenchymal enhancement. Major dural venous sinuses appear patent. No significant focal white matter lesions. There is a fairly well marginated 9 mm pineal cyst image 12 on the axial T2 data set. Medial temporal lobes are symmetric in signal and morphology. No enhancing cerebellopontine angle mass lesion. MRI/Brain W/WO Contrast IMPRESSION: No acute intracranial abnormality or abnormal brain parenchymal enhancement. No significant focal white matter lesions. 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 1 cm borderline upper cervical lymph nodes on the coronal postcontrast images. These may be reactive. Suggest close clinical follow-up. Reading Location: [facility]
== END | disposition home or self-care (01) ==
LOC: MRI 07:00
PROVIDERS: Referring Provider Psychiatry & Neurology Neurology; Visit Provider Psychiatry & Neurology Neurology
DX: G40.409 Other generalized epilepsy and epileptic syndromes, not intractable, without status epilepticus (principal)
CPT/HCPCS: 70553; A9575

== ENCOUNTER 2025-01-25 10:20 | Emergency (ER) | payer MEDICAID, SELFPAY ==
[2025-01-25 10:21] VITALS: BP 128/90; PULSE 94; RESP 18; TEMP 36.6; O2SAT 99; BMI 35.6
--- NOTE | 2025-01-25 10:43 | EKG12_ITS ---
Test Reason : CP Blood Pressure : */* mmHG Vent. Rate : 89 BPM Atrial Rate : 89 BPM P-R Int : 160 ms QRS Dur : 80 ms QT Int : 362 ms P-R-T Axes : 24 31 9 degrees QTcB Int : 440 ms Normal sinus rhythm with sinus arrhythmia Normal ECG Confirmed by NIK GALINDO, SUZIE ([id number]), news video editor DAY LIEBERMAN ([id number]) on 01/26/2025 9:12:51 AM Referred By: SEEMA/EUGENE Confirmed By: SUZIE ZARAGOZA MD
--- NOTE | 2025-01-25 10:52 | RAD_ITS ---
PROCEDURE: CHEST PA AND LATERAL 01/25/2025 REASON FOR EXAM: CHEST PAIN TECHNIQUE: Frontal and lateral views of the chest. COMPARISON: None. FINDINGS: Hardware: None. Heart: The heart size is normal. Mediastinum: The mediastinal contour is unremarkable. Lungs: The lungs are clear. Bones: The bones are unremarkable. RAD/Chest PA and Lateral IMPRESSION: NEGATIVE CHEST [facility]
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
[2025-01-25 11:02] LABS: Absolute Lymphocyte Count 2.32 X10^3/uL (0.83-4.51); Absolute Neutrophil Count 3.7 X10^3/uL (2.0-7.7); Basophil# 0.04 X10^3/uL; Basophil% 0.6 % (0-1); Eosinophil# 0.26 X10^3/uL; Eosinophils% 3.9 % (0-5); Hematocrit 36.6 % (37-47); Hemoglobin 11.9 g/dL (12.0-15.0); Lymphocyte # 2.32 X10^3/ul (0.83-4.51); Lymphocyte % 34.7 % (19-41); Mean Corp Hgb Conc 32.5 g/dL (32-36); Mean Corpuscular Hgb 27.2 pg (27.0-32.0); Mean Corpuscular Volume 83.8 fL (81-99); Mean Platelet Vol. 10.1 fl (6.2-12.0); Monocyte# 0.39 X10^3/uL; Monocyte% 5.8 % (0-10); NRBC Flagged by Analyzer 0 % (0-5); Neutrophil # 3.66 X10^3/uL (2.7-7.7); Neutrophil % 54.7 % (47-70); Platelet Count 302 K/mm3 (150-450); RBC Distribution Width CV 14.1 % (11.6-14.6); RBC Distribution Width SD 43.2 fl (35.1-43.9); Red Blood Count 4.37 M/mm3 (4.2-5.4); White Blood Count 6.7 K/mm3 (4.4-11.0)
[2025-01-25] MEDS: Ketorolac 15 MG/ML Vial IV (11:10)
[2025-01-25 11:28] LABS: Troponin T High Sensitivity < 6 ng/L (<=14)
[2025-01-25 11:29] LABS: ALB/GLOB Ratio 1.5 RATIO (0.9-2.4); AST(SGOT) 20 U/L (<=31); Alanine Aminotransfer ALT/SGPT 17 U/L (<=34); Albumin, Serum 4.1 g/dL (3.5-5.0); Alkaline Phosphatase 113 U/L (35-104); Anion Gap 12 (5-15); BUN 13 mg/dL (4-19); BUN/Creat Ratio 15.3 RATIO (10-20); Calcium,Total 9.2 mg/dL (7.6-11.0); Carbon Dioxide 19.2 mmol/L (21.0-32.0); Chloride 107 mmol/L (98-108); Creatinine, Serum 0.86 mg/dL (0.70-1.20); EST Glomerular Filtration Rate 99 (>60); Estimated Creatinine Clearance 102.75 ml/min (50-250); Globulin 2.8 g/dL (2.2-4.2); Glucose 91 mg/dL (70-99); Lipase 25 U/L (13-75); Sodium Level 137 mmol/L (133-145)
[2025-01-25 11:30] LABS: Internal QC Validated? YES +Cl - CLEAR BKGD; Pregnancy, Serum, hCG Quali. NEGATIVE Negative
[2025-01-25 11:52] VITALS: BP 121/77; PULSE 72; RESP 18; TEMP 36.5; O2SAT 91
== END 2025-01-25 11:53 | disposition home or self-care (01) ==
PROVIDERS: Physician Assistant; Emergency Provider Emergency Medicine; Visit Provider Emergency Medicine
DX: R07.89 Other chest pain (principal); R11.0 Nausea; R10.13 Epigastric pain; F17.290 Nicotine dependence, other tobacco product, uncomplicated
CPT/HCPCS: 71046; 80053; 83690; 84484; 84703; 85025; 93005; 96374; 99282

== ENCOUNTER → 2025-02-05 | Outpatient (CLI) | payer MEDICAID, SELFPAY ==
[2025-02-10 12:08] LABS: KEPPRA (LEVETIRACETAM) 3.2 ug/mL (10.0-40.0)
== END | disposition home or self-care (01) ==
LOC: MTLAB 13:40
DX: G40.909 Epilepsy, unspecified, not intractable, without status epilepticus (principal)
CPT/HCPCS: 36415; 80177